=== PATIENT | female | born 1945 | race Caucasian/White ===

== ENCOUNTER 2018-12-28 10:53 | Outpatient (CLI) | payer MEDICARE ==
[2018-12-28 12:04] LABS: Chol/HDL Ratio 3.35 %
== END 2018-12-28 10:54 | disposition home or self-care (01) ==
LOC: LAB 10:53
PROVIDERS: ATTEND Internal Medicine
DX: Z00.01 Encounter for general adult medical examination with abnormal findings (principal); E11.9 Type 2 diabetes mellitus without complications; E78.2 Mixed hyperlipidemia; E03.9 Hypothyroidism, unspecified
CPT/HCPCS: 36415; 80061; 83036

== ENCOUNTER 2019-05-03 09:09 | Outpatient (CLI) | payer MEDICARE ==
[2019-05-03 10:53] LABS: Chol/HDL Ratio 3.8 %
[2019-05-07 11:52] LABS: Vitamin D, 25-OH, D2 <4 ng/mL
== END 2019-05-03 09:10 | disposition home or self-care (01) ==
LOC: LAB 09:09
PROVIDERS: ATTEND Internal Medicine
DX: E11.9 Type 2 diabetes mellitus without complications (principal); E55.9 Vitamin D deficiency, unspecified; E03.9 Hypothyroidism, unspecified; E78.2 Mixed hyperlipidemia
CPT/HCPCS: 36415; 80061; 82306; 83036; 84443

== ENCOUNTER 2019-06-27 12:33 | Outpatient (CLI) | payer MEDICARE ==
--- NOTE | 2019-06-27 14:35 | Mammography Report ---
DIGITAL SCREENING MAMMOGRAM WITH CAD, 06/27/2019 INDICATION: Routine screening mammography. Breast cancer survivor status post left mastectomy. TECHNIQUE: Digital right 2D mammography was obtained in the craniocaudal and mediolateral oblique pr ojections. This examination was interpreted with the benefit of Computer-Aided Detection analysis. COMPARISON: None available. FINDINGS: Breast Density: The breast is mostly fatty. There is no evidence of dominant mass, suspicious calcifications or architectural distortion in the r ight breast. Benign calcifications which are mostly arterial. IMPRESSION: No mammographic evidence of malignancy. Follow up recommendation: Routine yearly BI-RADS Category 2: Benign. A "normal" or negative report should not discourage follow up or biopsy of a clinically significant f inding. A written summary of these findings will be mailed to the patient. The patient will be entered into a mammography reporting system which will generate a reminder letter for the patient's next appointmen t at the appropriate interval. The [employer] recommends yearly mammograms starting at age 40 and continuing as l marcia as a woman is in good health. Breast MRI is recommended for women with an approximate 20-25% or greater lifetime risk of breast cancer, including women with a strong family history of breast or ova radha cancer or who have been treated for Hodgkin's disease. Signer Name: Galen Jackson MD Signed: 06/27/2019 2:31 PM Workstation Name: [id number]
== END 2019-06-27 12:34 | disposition home or self-care (01) ==
LOC: MAMMO 12:33
PROVIDERS: ATTEND Internal Medicine
DX: Z12.31 Encounter for screening mammogram for malignant neoplasm of breast (principal)

== ENCOUNTER 2019-10-04 09:41 | Outpatient (CLI) | payer MEDICARE ==
[2019-10-04 10:25] LABS: Basophils % (Auto) 0.8 % (0.0-1.8); Eosinophils # (Auto) 0.2 K/mm3 (0.0-0.4); Eosinophils % (Auto) 3.4 % (0.0-4.3); Hematocrit 38.8 % (30.3-42.9); Lymphocytes # (Auto) 2.8 K/mm3 (1.2-5.4); Lymphocytes % (Auto) 53.5 % (13.4-35.0); Mean Corpuscular HGB Conc 34 % (30-34); Mean Corpuscular Volume 96 fl (79-97); Monocytes # (Auto) 0.4 K/mm3 (0.0-0.8); Monocytes % (Auto) 7.4 % (0.0-7.3); Platelet Count 192 K/mm3 (140-440); Red Blood Count 4.02 M/mm3 (3.65-5.03); Red Cell Distribution Width 13.5 % (13.2-15.2)
[2019-10-04 10:30] LABS: Creatinine,Urine 98.1 mg/dL (0.1-20.0)
[2019-10-04 10:31] LABS: Bacteria,Urine 1+ /HPF (Negative); Bilirubin,Urine NEG (Negative); Blood,Urine NEG (Negative); Color,Urine Yellow (Yellow); Mucus,Urine FEW /HPF; Urobilinogen,Urine < 2.0 mg/dL (<2.0)
[2019-10-04 10:54] LABS: Alanine Aminotransferase 13 units/L (7-56); Albumin 4.1 g/dL (3.9-5); BUN/Creatinine Ratio 28; Blood Urea Nitrogen 14 mg/dL (7-17); Calcium 10.1 mg/dL (8.4-10.2); HDL Cholesterol 53 mg/dL (40-59); Hemolysis Index 0; LDL Cholesterol,Direct 68 mg/dL (50-130); Microalbumin/Creatinine Ratio 141.6 ug/mg
[2019-10-08 11:54] LABS: Vitamin D, 25-OH, D2 <4 ng/mL
== END 2019-10-04 09:42 | disposition home or self-care (01) ==
LOC: LAB 09:41
PROVIDERS: ATTEND Internal Medicine
DX: E11.9 Type 2 diabetes mellitus without complications (principal); Z00.00 Encounter for general adult medical examination without abnormal findings; E78.2 Mixed hyperlipidemia; E03.9 Hypothyroidism, unspecified; E55.9 Vitamin D deficiency, unspecified; E56.9 Vitamin deficiency, unspecified
CPT/HCPCS: 36415; 80053; 80061; 81001; 82043; 82306; 82607; 83036; 84443; 85025

== ENCOUNTER 2021-03-12 10:55 | Outpatient (CLI) | payer MEDICARE ==
--- NOTE | 2021-03-12 18:18 | XRay Report ---
RIGHT HIP 2 VIEWS INDICATION / CLINICAL INFORMATION: RIGHT HIP PAIN. COMPARISON: None available. FINDINGS: BONES / JOINT(S): There is moderate lower lumbar spondylosis. The hip and SI joint spaces are well-ma intained. There is no evidence of fracture, subluxation or destructive lesion. SOFT TISSUES: No significant abnormality. ADDITIONAL FINDINGS: None. Signer Name: Moustapha Clark MD Signed: 03/12/2021 6:14 PM Workstation Name: [id number]
== END 2021-03-12 10:56 | disposition home or self-care (01) ==
LOC: US 10:55
PROVIDERS: ATTEND Internal Medicine
DX: M25.551 Pain in right hip (principal); N28.9 Disorder of kidney and ureter, unspecified; M47.816 Spondylosis without myelopathy or radiculopathy, lumbar region

== ENCOUNTER 2022-04-25 09:52 | Outpatient (CLI) | payer MEDICARE | END 2022-04-25 09:53 | disposition home or self-care (01) | LOC: LABHHL 09:52 | PROVIDERS: ATTEND Internal Medicine | DX: E11.9 Type 2 diabetes mellitus without complications (principal) | CPT/HCPCS: 36415; 83036 ==